=== PATIENT | male | born 1960 | race Caucasian/White ===

== ENCOUNTER → 2018-11-09 | Outpatient (CLI) | payer OTHER | LOC: BMCIMAGING 15:36 | PROVIDERS: ATTEND Family Medicine | DX: S62.624A Displaced fracture of middle phalanx of right ring finger, initial encounter for closed fracture (principal); X58.XXXA Exposure to other specified factors, initial encounter; Y92.9 Unspecified place or not applicable; Y93.9 Activity, unspecified; Y99.9 Unspecified external cause status ==